=== PATIENT | female | born 1975 | race Caucasian/White ===

== ENCOUNTER → 2022-06-09 | Outpatient (CLI) | payer OTHER | LOC: COL.CARD 09:04 | DX: G93.2 Benign intracranial hypertension (principal); R25.1 Tremor, unspecified; R42 Dizziness and giddiness ==

== ENCOUNTER 2022-07-26 08:43 | Day surgery (SDC) | payer OTHER ==
[~2022-07-26] VITALS: Ht 162.6 cm; Wt 113.5 kg
[2022-07-26 10:43] VITALS: BP 102/70; PULSE 90; TEMP 97.9
[2022-07-26] MEDS ORDERED: K-DUR 10 MEQ T10 MEQ PO (10:48)
[2022-07-26] MEDS ORDERED: COZAAR100 MG PO (10:48)
[2022-07-26] MEDS ORDERED: VITAMIN D3 PO (10:49)
[2022-07-26] MEDS ORDERED: HCTZ12.5TAB PO (10:49)
[2022-07-26] MEDS ORDERED: RT ADVAIR 528 DISKUS IH (10:50)
[2022-07-26] MEDS ORDERED: COMBIVENT RESPIMAT (10:50)
[2022-07-26] MEDS ORDERED: ZYRTEC 10MG10 MG PO (10:51)
[2022-07-26] MEDS ORDERED: TOPROL XL 50MG50 MG PO (10:51)
[2022-07-26] MEDS ORDERED: VITAMIN B650 MG PO (10:52)
[2022-07-26] MEDS ORDERED: UNISOM (10:52)
[2022-07-26] MEDS ORDERED: PROTONIX 40MG T40 MG PO (10:53)
[2022-07-26] MEDS ORDERED: DIAMOX SEQUELS500 M1 PO (10:55)
[2022-07-26] MEDS ORDERED: ZOFRAN 4MG T4 MG/TAB PO (10:56)
[2022-07-26] MEDS ORDERED: SINGULAIR 110 MG/TAB PO (10:58)
[2022-07-26] MEDS ORDERED: MIRAPEX0.5 MG PO (10:59)
[2022-07-26] MEDS ORDERED: FIORICET 325 MG1 TA1 PO (11:00)
[2022-07-26] MEDS ORDERED: MAXALT10 MG (11:00)
[2022-07-26] MEDS ORDERED: ZANAFLEX 4MG TAB4 MG PO (11:01)
[2022-07-26] MEDS ORDERED: NORCO 325 MG-101 TAB PO (11:01)
[2022-07-26] MEDS ORDERED: NASACORT OTC NS (11:01)
[2022-07-26] MEDS ORDERED: FLOMAX 0.40.4 MG/CAP PO (11:02)
[2022-07-26] MEDS ORDERED: TUMS500 MG (11:02)
[2022-07-26] MEDS ORDERED: NEURONTIN800 MG/TAB PO (11:02)
[2022-07-26] MEDS ORDERED: ASPIRIN E.C. 8181 MG PO (11:03)
[2022-07-26] MEDS ORDERED: CARAFATE 1GM1 G PO (11:18)
[2022-07-26 11:30] VITALS: BP 110/54; PULSE 81; TEMP 97.2
[2022-07-26 11:45] VITALS: BP 107/56; PULSE 87
--- NOTE | 2022-07-26 12:07 | NUR ---
1130-PATIENT RETURNED FROM [place]ED[facility] VIA CART [place] [facility] [facility], AMBULATED WITH SBA TO RECLINER. REPORT OBTAINED FROM FERCHO MUNSON. VITAL SIGNS TAKEN, VSS. PATIENT GIVEN FLUIDS AND SNACK, TOLERATING PO INTAKE WELL. DENIES PAIN/NAUSEA. 1135-DR. SMITH AT BEDSIDE FOR UPDATE, QUESTIONS INVITED. 1200-IV CATHETER REMOVED, CATHETER TIP INTACT. PRESSURE HELD AND BANDAGE APPLIED. DISCHARGE INSTRUCTIONS REVIEWED WITH PT. PT DRESSED INDEPENDENTLY. 1213-PATIENT DISCHARGED HOME TO [facility], ACCOMPANIED BY FRIEND. PATIENT REQUEST D/C VIA AMBULATION, AMBULATING INDEPENDENTLY.
[2022-07-31] VITALS (7 sets, daily range): O2SAT 99
[2022-08-02] VITALS (7 sets, daily range): O2SAT 86–98
== END 2022-07-26 12:13 | disposition home or self-care (01) ==
LOC: SDCO 08:43
DX: K29.30 Chronic superficial gastritis without bleeding (principal); K25.4 Chronic or unspecified gastric ulcer with hemorrhage; D12.2 Benign neoplasm of ascending colon; K31.84 Gastroparesis; D12.3 Benign neoplasm of transverse colon; R19.7 Diarrhea, unspecified; K64.0 First degree hemorrhoids; F17.210 Nicotine dependence, cigarettes, uncomplicated
CPT/HCPCS: J2704; J3010; J7120

== ENCOUNTER 2022-07-29 14:08 | Inpatient (IN) | payer OTHER ==
[~2022-07-29] VITALS: Ht 193 cm; Wt 121.8 kg
[~2022-07-29 14:08] MED LIST: ASPIRIN E.C. 8181 MG PO; CARAFATE 1GM1 G PO; COMBIVENT RESPIMAT; COZAAR100 MG PO; DIAMOX SEQUELS500 M1 PO; FIORICET 325 MG1 TA1 PO; FLOMAX 0.40.4 MG/CAP PO; HCTZ12.5TAB PO; K-DUR 10 MEQ T10 MEQ PO; MAXALT10 MG; MIRAPEX0.5 MG PO; NASACORT OTC NS; NEURONTIN800 MG/TAB PO; NORCO 325 MG-101 TAB PO; PROTONIX 40MG T40 MG PO; RT ADVAIR 528 DISKUS IH; SINGULAIR 110 MG/TAB PO; TOPROL XL 50MG50 MG PO; TUMS500 MG; UNISOM; VITAMIN B650 MG PO; VITAMIN D3 PO; ZANAFLEX 4MG TAB4 MG PO; ZOFRAN 4MG T4 MG/TAB PO; ZYRTEC 10MG10 MG PO
--- NOTE | 2022-07-29 17:57 | NUR ---
Patient arrived to the unit via EMS, alert and oriented x 4, in need of 6 L O2 NC. SOB while speaking, O2 drops with movement to 87-88%.
[2022-07-29 18:00] VITALS: BP_SYST 120
[2022-07-29] MEDS ORDERED: ALBUTEROL0.83 MG/ML IH (18:00)
[2022-07-29] MEDS ORDERED: RT ALBUTER2.5 MG/0.5 IH (18:02)
[2022-07-29] MEDS ORDERED: PROAIR HFA0.09 MG/AC IH (18:08)
[2022-07-29] MEDS ORDERED: PHENERGAN 25 TA25 MG PO (18:11)
[2022-07-29] MEDS ORDERED: SINGULAIR 110 MG/TAB PO (18:12)
[2022-07-29] MEDS ORDERED: FIORICET 325 MG1 TA1 PO (18:14)
[2022-07-29] MEDS ORDERED: ASTELIN NASAL S34 ML NS (18:18)
[2022-07-29] MEDS ORDERED: LASIX 40MG TABL40 MG PO (18:21)
[2022-07-29] MEDS ORDERED: TURMERIC500 MG PO (18:22)
[2022-07-29] MEDS ORDERED: LIDODERM 5% PATC1 EA TP (18:25)
[2022-07-29 19:26] VITALS: BP 102/58; PULSE 104; TEMP 99.1
[2022-07-29 19:30] LABS: ARTERIAL BLD GAS O2 SATURATION 95.8 % (92-100); ARTERIAL BLD GAS TCO2 CT 22.1; ARTERIAL BLOOD GAS BASE EXCESS -2.8 (-2-2); ARTERIAL BLOOD GAS HCO3 21.1 meq/L (22-26); ARTERIAL BLOOD GAS PCO2 33.6 mmHg (35-45); ARTERIAL BLOOD GAS PO2 78.8 mmHg (80-100); ARTERIAL BLOOD GAS pH 7.42 (7.35-7.45)
[2022-07-29 21:00] VITALS: BP_SYST 102
[2022-07-29 23:56] VITALS: BP 101/40; PULSE 102; TEMP 98.2
[2022-07-30] VITALS (13 sets, daily range): BP systolic 91–125; BP diastolic 51–72; PULSE 60–97; TEMP 97.8–99.1
--- NOTE | 2022-07-30 | NUR ---
Assessment completed at 2015. A&Ox4. Pt currently experiencing dyspnea on rest, and having difficulty speaking due to SOA. RAC INT is CDI. On O2 at 6L per NC. Gait is very unsteady, so bedside commode is next to the bed to facilitate safe transfer of the pt. Pt refusing to use bedpan. Pt was also requesting to have the regular pain meds and anxiety meds that she usually takes at home. Provider was notified. Provider placed verbal orders to perform RVP test, and place pt on Droplet precautions.
--- NOTE | 2022-07-30 06:32 | NUR ---
Pt was reporting chest pain around 0445. MEE Fox was notified. EKG and pain medication were ordered at this time. BP was 117/60 around 0600, and per MEE Fox IV lasix is good to be administered if SBP is above 110. Pain was scored at 6/10. Pt remains on O2 at 6L per Oxymask.
[2022-07-30 06:39] LABS: HEMOGLOBIN 12.2 g/dl (12.5-16.0); MEAN CELL VOLUME 98 fl (80.0-100.0); MEAN CORPUSCULAR HEMOGLOBIN 34 pg (27-31); MEAN CORPUSCULAR HGB CONC 35 g/dl (33.0-37.0); MEAN PLATELET VOLUME 11.2 fl (7.4-10.4); PLATELET COUNT 249 K/mm3 (130-400); RED BLOOD COUNT 3.58 M/mm3 (4.10-5.30); REDCELL DISTRIBUTION WIDTH-CV 13.2 % (11.5-14.5)
[2022-07-30 06:43] LABS: HEMATOCRIT 35.2 % (37.0-47.0)
[2022-07-30 07:03] LABS: ANION GAP 11 mmol/L (7-16); BLOOD UREA NITROGEN 26 mg/dL (7-19); CALCIUM 9.7 mg/dL (8.4-10.2); CARBON DIOXIDE 23 mmol/L (22-29); CHLORIDE 106 mmol/L (98-107); CREATININE, serum 1.25 mg/dL (0.57-1.11); GLUCOSE 149 mg/dL (70-99); MAGNESIUM 2.3 mg/dL (1.6-2.6); POTASSIUM 3.5 mmol/L (3.5-4.5); SODIUM 140 mmol/L (136-145)
[2022-07-30 07:10] LABS: TROPONIN-I < 0.010 ng/mL (0.00-0.033)
[2022-07-30 07:30] LABS: BAND 13 % (0-10); LYMPHOCYTE 7 % (20.0-51.0); NEUTROPHILS 80 % (42.0-75.2); PLATELET ESTIMATE NORMAL (NORMAL)
--- NOTE | 2022-07-30 15:07 | NUR ---
PATIENT ALERT AND ORIENTED X3. PATIENT WORKED WITH THERAPY TODAY. USING BED SIDE COMMODE. NEW IV TO RIGHT HAND. PRN NORCO GIVEN FOR PAIN. ON CLEAR LIQUID DIET.
[2022-07-30 16:19] LABS: ARTERIAL BLD GAS TCO2 CT 29.1; ARTERIAL BLOOD GAS BASE EXCESS 3.2 (-2-2); ARTERIAL BLOOD GAS HCO3 27.8 meq/L (22-26); ARTERIAL BLOOD GAS PCO2 42.2 mmHg (35-45); ARTERIAL BLOOD GAS pH 7.44 (7.35-7.45)
--- NOTE | 2022-07-30 16:24 | NUR ---
PATIENT COMPLAINING OF HEAVINESS IN CHEST AND HAVING TROUBLE BREATHING. O2 WAS 94%. DR GOULD NOTIFIED. EKG AND ABG ORDERED. TROPONIN LEVEL DRAWN. MORPHINE GIVEN FOR PAIN.
[2022-07-31] VITALS (645 sets, daily range): BP systolic 97–131; BP diastolic 49–83; PULSE 64–90; TEMP 97.7–98.4; O2SAT 87–100
--- NOTE | 2022-07-31 05:13 | NUR ---
Assessment completed around 2029. Medications administered per emar. Pt is expressing feeling very upset because she expressed she had a very hard day because of the pain management that was not under control. She requested this CURB SETTER HELPER something to eat, stating that nobody assisted her earlier to order her dinner. O2 on Airvo at 30L. R Hand INT is CDI. Pt requesting pain meds at this time. Belongings and call light are within reach.
--- NOTE | 2022-07-31 05:43 | NUR ---
Pt requested her pain meds during the night. Couldn't sleep very good and stated that headache didn't decrease that much. Transferred to bedside commode with dark yellow urine output.
[2022-07-31 07:31] LABS: HEMOGLOBIN 11.9 g/dl (12.5-16.0); MEAN CELL VOLUME 97 fl (80.0-100.0); MEAN CORPUSCULAR HEMOGLOBIN 34 pg (27-31); MEAN CORPUSCULAR HGB CONC 35 g/dl (33.0-37.0); PLATELET COUNT 271 K/mm3 (130-400); RED BLOOD COUNT 3.52 M/mm3 (4.10-5.30); REDCELL DISTRIBUTION WIDTH-CV 13.1 % (11.5-14.5)
[2022-07-31 07:36] LABS: HEMATOCRIT 34.3 % (37.0-47.0)
[2022-07-31 07:51] LABS: ALBUMIN 2.7 gm/dL (3.5-5.0); CALCIUM 9.3 mg/dL (8.4-10.2); CREATININE, serum 1.29 mg/dL (0.57-1.11); PHOSPHOROUS 3.1 mg/dL (2.3-4.7); POTASSIUM 3.3 mmol/L (3.5-4.5)
--- NOTE | 2022-07-31 08:00 | NUR ---
Assessment completed. Pt A/O x4. AirVo at 30L. Pt reports SOA at rest but able to speak in full sentences. Reports chronic migraines and generalized pain from injury she sustained while in the . Requesting Maxalt not Fioricit since Maxalt works better for the type of headache she is currently experiencing. Also requesting MSO4. Maxalt not ordered. Will contact physician for order. Reports no bowel movement since had EGD/Colon on Monday but has only been on clear liquids- denies passing flatus. Denies nausea or vomitting. Reports chest pain is chronic and has not changed since yesterday.
[2022-07-31 09:05] LABS: BAND 2 % (0-10); LYMPHOCYTE 4 % (20.0-51.0); NEUTROPHILS 93 % (42.0-75.2)
[2022-07-31 09:06] LABS: PLATELET ESTIMATE NORMAL (NORMAL)
[2022-07-31 11:47] LABS: ARTERIAL BLD GAS O2 SATURATION 95.7 % (92-100); ARTERIAL BLD GAS TCO2 CT 28.3; ARTERIAL BLOOD GAS BASE EXCESS 3.1 (-2-2); ARTERIAL BLOOD GAS HCO3 27.1 meq/L (22-26); ARTERIAL BLOOD GAS PCO2 39.2 mmHg (35-45); ARTERIAL BLOOD GAS PO2 81.7 mmHg (80-100); ARTERIAL BLOOD GAS pH 7.46 (7.35-7.45)
--- NOTE | 2022-07-31 12:39 | NUR ---
Imitrex adminsited for c/o headache at 1107. MSO4 adminsitered for c/o headache at 1230- rating 8/10 and chest pain 7/10. Report called to FERCHO Dillard in ICU.
--- NOTE | 2022-07-31 13:10 | NUR ---
Pt transferred to the ICU bed #5.
--- NOTE | 2022-07-31 13:25 | NUR ---
Arrived to the unit from the medical floor. Patient alert and oriented. No respiratory distress noted at rest, however exertional dyspnea was noted after moving herself from medical bed to icu bed. 02 saturations 99% on 30L at 35% on airvo. Patient denies any concerns at this time and appears more comfortable after settling into the ICU bed. Call light left within reach; will continue to monitor.
--- NOTE | 2022-07-31 16:40 | NUR ---
Patient's heart rate noted to be sinus dysrhythmia ranging from the 40's-80's. BP stable and patient alert and oriented per her baseline. 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 States that her heart beat will fluctuate and get "fast and slow". She reports some midsternal sharp chest pain with some tightness. This chest pain was present on admission and started several days ago. The pain is worse when she coughs. EKG obtained and Dr. Tate notified and EKG was reviewed. No new orders at this time.
--- NOTE | 2022-07-31 20:00 | NUR ---
SHIFT REPORT RECEIVED. PT IS A&O x4. PT REPORTS FEELING LIKE SHE IS HAVING INCREASED WORK OF BREATHING AND IS STARTING TO FEEL "TIRED". PT LUNG SOUNDS COARSE AND PT ON AIRVO AT THIS TIME. PT REPORTS MILD DULL AGUILAR AND REQUESTING HER EVENING MEDS AT THIS TIME. CALL LIGHT AT BEDSIDE.
[2022-07-31 22:26] LABS: COLLECTION METHOD CLEAN CATCH
[2022-07-31 22:31] LABS: URINE APPEARANCE Clear (CLEAR/HAZY); URINE COLOR Yellow (YELLOW)
[2022-07-31 22:32] LABS: PH 5.5 (5.0-8.5); SQUAMOUS EPITHELIAL 0-2 /hpf (0-10); URINE BACTERIA None Seen /hpf (NONE SEEN); URINE BLOOD Negative (NEGATIVE); URINE GLUCOSE Negative (NEGATIVE); URINE KETONE Negative (NEGATIVE); URINE NITRATE Negative (NEGATIVE); URINE PROTEIN(semi-quant) TRACE (NEGATIVE); URINE RBC 0-2 /hpf (0-2); URINE UROBILINOGEN 0.2 E.U/dL (0.2-1.0)
[2022-08-01] VITALS (1215 sets, daily range): BP systolic 110–143; BP diastolic 61–83; PULSE 47–56; TEMP 97.2–98.2; O2SAT 84–100
[2022-08-01 03:54] LABS: HEMOGLOBIN 11.9 g/dl (12.5-16.0); MEAN CELL VOLUME 97 fl (80.0-100.0); MEAN CORPUSCULAR HEMOGLOBIN 34 pg (27-31); MEAN CORPUSCULAR HGB CONC 35 g/dl (33.0-37.0); MEAN PLATELET VOLUME 10.4 fl (7.4-10.4); PLATELET COUNT 251 K/mm3 (130-400); RED BLOOD COUNT 3.47 M/mm3 (4.10-5.30); REDCELL DISTRIBUTION WIDTH-CV 12.7 % (11.5-14.5)
[2022-08-01 03:59] LABS: HEMATOCRIT 33.7 % (37.0-47.0)
[2022-08-01 04:18] LABS: ALBUMIN 2.7 gm/dL (3.5-5.0); C-REACTIVE PROTEIN 4.51 mg/dL (0.00-0.50); CALCIUM 9.4 mg/dL (8.4-10.2); CREATININE, serum 1.1 mg/dL (0.57-1.11); PHOSPHOROUS 2.8 mg/dL (2.3-4.7); POTASSIUM 3.9 mmol/L (3.5-4.5)
[2022-08-01 04:37] LABS: LYMPHOCYTE 12 % (20.0-51.0); NEUTROPHILS 86 % (42.0-75.2); PLATELET ESTIMATE NORMAL (NORMAL)
--- NOTE | 2022-08-01 06:52 | NUR ---
PT WAS ABLE TO REST MOST OF THE NIGHT. HAD C/O "HEART HURTS, FEELS SORE" APPROX @0330. PT GIVEN MORPHINE PER JUN, SEEN BY HOSPITALIST, AND PLACED ON BIPAP. PT REPORTS FEELING RELIEF IN SXS SINCE THEN.
--- NOTE | 2022-08-01 07:00 | NUR ---
BEDSIDE REPORT RECEIVED FROM FERCHO DUNCAN. PT CURRENTLY ON BIPAP AND RESTING IN BED. ANSWERS YES AND NO QUESTIONS APPROPRIATELY. OFFERS NO COMPLAINTS. APPEARS TO BE RESTING COMFORTABLY.
[2022-08-01 08:49] LABS: ARTERIAL BLD GAS O2 SATURATION 97.9 % (92-100); ARTERIAL BLD GAS TCO2 CT 26.7; ARTERIAL BLOOD GAS BASE EXCESS 1.9 (-2-2); ARTERIAL BLOOD GAS HCO3 25.6 meq/L (22-26); ARTERIAL BLOOD GAS PCO2 36.7 mmHg (35-45); ARTERIAL BLOOD GAS PO2 110.7 mmHg (80-100); ARTERIAL BLOOD GAS pH 7.46 (7.35-7.45)
--- NOTE | 2022-08-01 11:34 | NUR ---
Technical Service Representative met with Patient at bedside to conduct Care Managment Assessment and discuss discharge planning. Patient lives in [place], [place] with her nanny and children. Patient reports that her is stationed in [place] and is returning due to her admission. Patient is established with all healthcare needs through [facility] and is covred with community care through [facility]. Thang denies the use of O2, DME, and home health services prior to admission. Patient reports to have advanced directives at home. SW briefed that a copy of the AD would be needed should Patient become unresponsive for a family member to be able to make decisions on her bahalf as Patient's is deployed and could potentially not be able to be contacted. Per physician, Patient is to transfer to medical unit on this day.
--- NOTE | 2022-08-01 14:35 | NUR ---
PHYSICAL THERAPY HERE TO WORK WITH PT. PT STATES SHE DOES NOT WANT TO GET OUT OF BED DUE TO MIGRAINE. THIS NURSE EDUCATED PT ON IMPORTANCE OF MOVEMENT AND DEEP BREATHING TO HELP WITH PNA. PT VERBALIZED UNDERSTANDING BUT DECLINED TO GET OUT OF BED/WORK WITH PHYSICAL THERAPY.
--- NOTE | 2022-08-01 19:19 | NUR ---
[place] CATHETER REMOVED. PT EXPRESSES SHE IS NOT HAPPY ABOUT NO LONGER HAVING A KINGSTON. STATES "I DONT KNOW HOW YOU THINK I'M GOING TO GO PEE, BECAUSE I'M NOT GOING TO GET OUT OF BED." PT ASKS WHO'S DECISION IT WAS TO REMOVE KINGSTON. PT INFORMED THAT IT WAS ORDED BY DR. HOLLOWAY TO BE REMOVED. PT ALSO EDUCATED ON IMPORTANCE OF REMOVING KINGSTON SOON NO LONGER INDICATED DUE TO HIGH RISK OF INFECTION. UNSURE IF PT UNDERSTANDS; IGNORES THIS NURSE WHEN SPOKEN TO.
--- NOTE | 2022-08-01 19:52 | NUR ---
Received report from day shift nurse. Pt is resting in bed and has call light wiQooplin reach. Pt's vitals are stable at this time.
--- NOTE | 2022-08-01 20:59 | NUR ---
Indwelling bell was removed during shift change. Ask if pt needs to go to the restroom at this time. Pt refuses and states she has "Nothing to pee." Will continue to ask throughout the night.
--- NOTE | 2022-08-01 21:11 | NUR ---
2030 Pt denies to being repositioned at this time. Nurse asked pt if she would like an ice pack for her headache and pt refused. Pt wanted morphine but it has been D/C, educated pt on not wanting to lower her respiratory drive and want her to breath deeply to help move her lungs more. Gave her narco and tylenol per EMAR.
[2022-08-02] VITALS (281 sets, daily range): BP systolic 139–142; BP diastolic 80–94; PULSE 46–71; TEMP 97.8–98.6; O2SAT 87–100
[2022-08-02 04:47] LABS: HEMATOCRIT 37.7 % (37.0-47.0); HEMOGLOBIN 12.9 g/dl (12.5-16.0); MEAN CELL VOLUME 99 fl (80.0-100.0); MEAN CORPUSCULAR HEMOGLOBIN 34 pg (27-31); MEAN CORPUSCULAR HGB CONC 34 g/dl (33.0-37.0); MEAN PLATELET VOLUME 10.6 fl (7.4-10.4); PLATELET COUNT 265 K/mm3 (130-400); RED BLOOD COUNT 3.81 M/mm3 (4.10-5.30); REDCELL DISTRIBUTION WIDTH-CV 12.5 % (11.5-14.5)
[2022-08-02 05:05] LABS: BAND 2 % (0-10); LYMPHOCYTE 14 % (20.0-51.0); METAMYELOCYTE 3 % (0-0); NEUTROPHILS 80 % (42.0-75.2); NUCLEATED RED BLOOD CELL 1 (0-6); PLATELET ESTIMATE NORMAL (NORMAL)
[2022-08-02 05:16] LABS: ALBUMIN 2.9 gm/dL (3.5-5.0); CREATININE, serum 1.11 mg/dL (0.57-1.11); PHOSPHOROUS 2.4 mg/dL (2.3-4.7); POTASSIUM 4.1 mmol/L (3.5-4.5)
--- NOTE | 2022-08-02 11:29 | NUR ---
Quality Head met with Patient at bedside to support Patient's concerns for care. Quality Head provided support and encouragment to Patient.
--- NOTE | 2022-08-02 14:20 | NUR ---
Pt had an uneventful night. Pt's vitals were stable throughout the night. Pt had bell removed at the beginning and stated she did not need to urinate. Around 0430 nurse asked if pt would try and get up to the bedside commode and see if that would help the urge. Pt pivoted from bed to commode and was able to do with nurse at standby assist. Pt was able to get 500 mL out. Pt complained of pain q4hr and pain meds were administered when able per EMAR. Pt is alert and oriented and able to follow commands. Gave report to day shift nurseMarie.
--- NOTE | 2022-08-02 15:10 | NUR ---
PT TRANSFERED TO MEDICAL FLOOR VIA WHEELCHAIR. REPORT GIVEN TO FERCHO SURESH AND JEREMIAS.
--- NOTE | 2022-08-02 15:36 | NUR ---
PT ADMITTED TO UNIT AROUND 1510 TODAY. GAME FARM HELPER WAS ASSISTING GEN SURESH RN WITH PT TRANSFER FROM ICU TO UNIT; MANAGER CALL WAS IN THE ROOM DOING VITALS- SHE NOTIFIED GAME FARM HELPER THAT PT HR WAS IN THE 40'S- GAME FARM HELPER SAID "OKAY, ICU SAID SHE HAD BEEN RUNNING IN THE 40'S". AND DEMETRICE DID PT MED REQ AND GAME FARM HELPER THEN TOLD DEMETRICE TO DO PT ASSESSMENT; LISTEN TO LUNGS, ETC. PT SAYS " MAY I SAY SOMETHING, MAYBE IT WAS YOUR TONE OF VOICE. I JUST WANT YOU TO KNOW EVERYTHING GOING ON WITH ME AND NOT IGNORE THINGS. YOU SAID IT WAS OKAY THAT MY HEART RATE WAS IN THE 40'S". GAME FARM HELPER SAID "I DID NOT SAY THAT IT WAS OKAY IT WAS IN THE 40'S". PT STATED "YES YOU DID". GAME FARM HELPER STATED " SERGIO TOLD ME THAT YOUR HEART RATE WAS IN THE 40'S AND I RESPONDED OKAY, ICU SAID SHE HAD BEEN RUNNING IN THAT RANGE. THAT IS VERY DIFFERENT THAN SAYING IT WAS OKAY FOR IT TO BE IN THE 40'S. I WOULD APPRECIATE IF YOU DID NOT PUT WORDS IN MY MOUTH I HADN'T SAID". PT THEN STATED THAT SHE HAD A LOW HR BECAUSE SHE HAS CHF. GAME FARM HELPER TOLD HER THAT GAME FARM HELPER WAS AWARE SHE HAD CHF, THAT GAME FARM HELPER HAD LOOKED OVER HER CHART AND IS AWARE OF EVERYTHING GOING ON. PT STATES THAT SHE WANTED TO MAKE SURE THAT WE KNOW EVERYTHING HAPPENING AND DON'T ONLY FOCUS ON HER LUNGS. GAME FARM HELPER TOLD HER THAT WE WILL CHECK EVERYTHING DURING ASSESSMENT. PT APPEARS TO ONLY HEAR BITS AND PIECES OF WHAT SHE WANTS TO THEN BE ARGUEMENTATIVE ABOUT THINGS. VERY DEFENSIVE AND MANIPULATIVE BEHAVIORS. WILL CONTINUE TO MONITOR PT UNTIL END OF SHIFT
--- NOTE | 2022-08-02 15:39 | NUR ---
Patient arrived in room from ICU. Alert and oriented x4. Patient complains pain rating 8/10. When asked for specific location or type of pain, patient says just the general pain. Bed in low position, bed alarm is on. Will continue to monitor.
[2022-08-03 00:38] VITALS: BP 150/78; PULSE 46; TEMP 98.2
[2022-08-03 03:45] VITALS: BP 141/79; PULSE 61; TEMP 98.4
[2022-08-03 06:57] LABS: HEMOGLOBIN 11.8 g/dl (12.5-16.0); MEAN CELL VOLUME 99 fl (80.0-100.0); MEAN CORPUSCULAR HEMOGLOBIN 34 pg (27-31); MEAN CORPUSCULAR HGB CONC 34 g/dl (33.0-37.0); MEAN PLATELET VOLUME 10.8 fl (7.4-10.4); PLATELET COUNT 241 K/mm3 (130-400); RED BLOOD COUNT 3.52 M/mm3 (4.10-5.30); REDCELL DISTRIBUTION WIDTH-CV 12.6 % (11.5-14.5)
[2022-08-03 07:01] LABS: HEMATOCRIT 34.7 % (37.0-47.0)
[2022-08-03 07:26] VITALS: BP 144/82; PULSE 68; TEMP 98.4
[2022-08-03 07:28] LABS: ALBUMIN 2.7 gm/dL (3.5-5.0); CALCIUM 9.3 mg/dL (8.4-10.2); CREATININE, serum 1.11 mg/dL (0.57-1.11); PHOSPHOROUS 2.5 mg/dL (2.3-4.7)
--- NOTE | 2022-08-03 07:40 | NUR ---
Pt lying in dark room w/ HOB elevated at approx 40 degrees. A&Ox4. Shift assessment performed. Respirations are even and unlabored on room air. Pt denies SOA, dyspnea, or chest pain. No cyanosis to lips or extremities. Pt does report headache and requesting PRN APAP. Pain is 4/10 throbbing. PRN APAP admin. No other complaints or concerns.
[2022-08-03] MEDS ORDERED: CLEOCIN HCL300 MG PO (11:09)
[2022-08-03] MEDS ORDERED: PREDNISONE20 MG PO (11:09)
--- NOTE | 2022-08-03 11:29 | NUR ---
SW notified that Exox completed and the patient does not have any home oxygen needs for discharge.Patient to discharge home later today. Discharge plan: Home
--- NOTE | 2022-08-03 11:55 | NUR ---
Central line removed from LF chest. Sterile process. Tip intact. Gauze and coban applied. Patient tolerated well. 15 minutes pressure held. Call light within reach
--- NOTE | 2022-08-03 12:40 | NUR ---
Pt is preparing for discharge. PIV removed from LFA w/ cath intact. Pressure drsg applied. Discharge education and instructions given to pt. Pt verbalizes understanding. No questions or concerns. Pt then escorted to POV via w/c by this nurse.
[2022-08-03 14:22] LABS: LYMPHOCYTE 9 % (20.0-51.0); NEUTROPHILS 86 % (42.0-75.2)
[2022-08-03 14:23] LABS: PLATELET ESTIMATE NORMAL (NORMAL)
== END 2022-08-03 12:40 | disposition home or self-care (01) | DRG 871 ==
LOC: MEDICAL 14:08 → ICU 16:11 → MEDICAL 08-02 15:15
PROVIDERS: Internal Medicine; Internal Medicine Pulmonary Disease; ADMIT Student in an Organized Health Care Education/Training Program
PROC: 02HV33Z Insertion of Infusion Device into Superior Vena Cava, Percutaneous Approach (ICD-10-PCS; principal; 2022-07-31)
PROC: 5A09457 Assistance with Respiratory Ventilation, 24-96 Consecutive Hours, Continuous Positive Airway Pressure (ICD-10-PCS; 2022-08-01)
DX: A41.9 Sepsis, unspecified organism (principal); J18.9 Pneumonia, unspecified organism; J96.01 Acute respiratory failure with hypoxia; I50.32 Chronic diastolic (congestive) heart failure; I13.0 Hypertensive heart and chronic kidney disease with heart failure and stage 1 through stage 4 chronic kidney disease, or unspecified chronic kidney disease; E87.20 Acidosis, unspecified; H54.62 Unqualified visual loss, left eye, normal vision right eye; I48.0 Paroxysmal atrial fibrillation; E66.01 Morbid (severe) obesity due to excess calories; K31.84 Gastroparesis; G89.29 Other chronic pain; F17.210 Nicotine dependence, cigarettes, uncomplicated; K44.9 Diaphragmatic hernia without obstruction or gangrene; N18.30 Chronic kidney disease, stage 3 unspecified; K76.0 Fatty (change of) liver, not elsewhere classified; E87.6 Hypokalemia; E83.42 Hypomagnesemia; Z87.442 Personal history of urinary calculi; Z90.710 Acquired absence of both cervix and uterus; Z90.49 Acquired absence of other specified parts of digestive tract; Z79.82 Long term (current) use of aspirin; Z79.899 Other long term (current) drug therapy; Z98.2 Presence of cerebrospinal fluid drainage device; Z23 Encounter for immunization; Z68.32 Body mass index [BMI] 32.0-32.9, adult
CPT/HCPCS: A4314; J0696; J1644; J1940; J2270; J2543; J2920; J3475; J3480

== ENCOUNTER 2023-01-12 11:59 | Outpatient (CLI) | payer OTHER ==
[~2023-01-12] VITALS: Ht 162.6 cm; Wt 116.5 kg
[~2023-01-12 11:59] MED LIST changes: +ALBUTEROL0.83 MG/ML IH; +ASTELIN NASAL S34 ML NS; +CEFTIN500 MG PO; +CLEOCIN HCL300 MG PO; +COMBIRESP IH; -COMBIVENT RESPIMAT; +DESYREL 50MG50 MG PO; +EMGALITY120 MG/1 M SQ; -K-DUR 10 MEQ T10 MEQ PO; +LASIX 40MG TABL40 MG PO; +LIDODERM 5% PATC1 EA TP; +MAXALT MLT10 MG/TAB PO; -MAXALT10 MG; +PHENERGAN 25 TA25 MG PO; +PREDNISONE10 MG PO; +PREDNISONE20 MG PO; +PROAIR HFA0.09 MG/AC IH; +RT ALBUTER2.5 MG/0.5 IH; +TURMERIC500 MG PO; -UNISOM; +UNISOM25 MG PO; +UROCIT-K 1010 MEQ PO; -VITAMIN D3 PO; +VITAMIN D31000 I1 PO; -ZYRTEC 10MG10 MG PO; +ZYRTEC5 MG PO
[2023-01-12 12:22] VITALS: BP 99/75; PULSE 89; TEMP 98.2
[2023-01-12] MEDS ORDERED: VITAMIN B-625 MG PO (13:29)
[2023-01-12 14:40] VITALS: BP 130/86; PULSE 94
[2023-01-12 15:00] VITALS: BP 129/91; PULSE 96
--- NOTE | 2023-01-12 15:45 | NUR ---
Pt ambulated to EU9 accompanied by . Pt is scheduled for a tilt table test. IV started, EKG done. Meds and HX reviewed with the pt. Pt taken to laborer wharf. Came back to EU9 post procedure. Pt did not have any episodes of passing out during the recovery. Pt recovered in EU9 for about 30 minutes, per pt was okay to DC after 30 minutes. Discharge education and information given to the pt. No questions or concerns. Pt exited the unit by wheelchair to husbands car.
== END 2023-01-12 15:23 | disposition home or self-care (01) ==
LOC: COL.CAR 11:59
DX: R55 Syncope and collapse (principal); I48.0 Paroxysmal atrial fibrillation; R06.02 Shortness of breath; I50.30 Unspecified diastolic (congestive) heart failure; I13.0 Hypertensive heart and chronic kidney disease with heart failure and stage 1 through stage 4 chronic kidney disease, or unspecified chronic kidney disease; F17.210 Nicotine dependence, cigarettes, uncomplicated; Z79.82 Long term (current) use of aspirin; Z79.899 Other long term (current) drug therapy; Z79.891 Long term (current) use of opiate analgesic

== ENCOUNTER → 2023-04-19 | Outpatient (CLI) | payer OTHER ==
[~2023-04-19] MED LIST changes: +ADVIL200 MG PO; +DOXYCYCLINE HY100 MG PO; +EXCEDRIN1 TAB PO; +HYZAAR 50-12.1 UDTAB PO; +NASONEX 24HR AL17 ML NS; +VITAMIN B-625 MG PO; +ZYRTEC 10MG10 MG PO
== END ==
LOC: MHCPAIN 09:56
DX: M48.061 Spinal stenosis, lumbar region without neurogenic claudication (principal); M47.816 Spondylosis without myelopathy or radiculopathy, lumbar region
CPT/HCPCS: G0463

== ENCOUNTER 2023-04-29 21:42 | Inpatient (IN) | payer OTHER ==
[~2023-04-29] VITALS: Ht 162.6 cm; Wt 117.5 kg
[2023-04-29] MEDS ORDERED: Albuterol/Ipratropium 3 MG-0.5 MG/3 ML Neb Soln IH PRN ×2 (22:15)
--- NOTE | 2023-04-29 23:05 | NUR ---
PT ARRIVED FROM [facility] [place] VIA EMS. PT IS AXOX3. PT IS ON 2L NC SATING LOW 90'S. PT IS SOB WITH ACTIVITY. PT IS ONLY ABLE TO SPEAK ONE SENTENCE AT A TIME WITHOUT STOPPING DUE TO BEING WINDED. OTHER VSS. PT ORIENTED TO ROOM AND FLOOR. PT GIVEN CALL LIGHT AND INSTRUCTED TO CALL WITH ALL NEEDS. JAVIER SCHAEFER IN ROOM TO ASSESS PT. LAB CALLED FOR NEW ORDERS. ASSESSMENT AND ADMISSION COMPLETED.
[2023-04-29] MEDS ORDERED: Promethazine 25 MG TAB PO PRN (23:15)
[2023-04-29] MEDS ORDERED: traZODone 50 MG TAB PO SCH (23:16)
[2023-04-29] MEDS ORDERED: Montelukast 10 MG TAB PO SCH (23:17)
[2023-04-29] MEDS ORDERED: Lidocaine 4% Topical Patch TP SCH (23:30)
[2023-04-29 23:37] VITALS: BP 112/69; PULSE 97; TEMP 98.1
[2023-04-30] VITALS (13 sets, daily range): BP systolic 89–125; BP diastolic 50–80; PULSE 91–108; TEMP 97.5–98.7
[2023-04-30] MEDS ORDERED: Gabapentin 400 MG CAP PO SCH (00:07)
[2023-04-30] MEDS ORDERED: Sucralfate 1 G TAB PO SCH (00:08)
[2023-04-30] MEDS ORDERED: HYDROcodone/Acetaminophen 10-325 MG TAB PO SCH (00:08)
[2023-04-30 00:53] LABS: CALCIUM 9.9 mg/dL (8.4-10.2); CREATININE, serum 1.26 mg/dL (0.57-1.11)
[2023-04-30 00:58] LABS: POTASSIUM 2.9 mmol/L (3.5-4.5)
[2023-04-30] MEDS ORDERED: Potassium Bicarbonate/Citrate 20 MEQ Effervescent TAB PO SCH ×2 (01:15→09:30)
[2023-04-30] MEDS ORDERED: *Potassium Replacement Protocol MC SCH ×2 (01:15→09:30)
[2023-04-30] MEDS ORDERED: Albuterol/Ipratropium 3 MG-0.5 MG/3 ML Neb Soln IH SCH ×2 (02:00)
[2023-04-30] MEDS ORDERED: Morphine 4 MG/ML VIAL IV ONE ×2 (03:45→04:30)
--- NOTE | 2023-04-30 04:28 | NUR ---
0325-Pt called stating they were having chest pain. VSS. Pt states its the same pain she has everytime she gets sick. Shy SCHAEFER notified and orders received.
[2023-04-30] MEDS ORDERED: Budesonide Neb Susp 0.5 MG/2 ML AMP IH SCH (07:00)
[2023-04-30] MEDS ORDERED: Formoterol Neb Soln 20 MCG/2 ML UD IH SCH (07:00)
--- NOTE | 2023-04-30 08:30 | NUR ---
Assessment complete. Pt a/o x4. O2 2L/NC. SOA with minimal exertion- unable to complete full sentences. WBC value verbally given to Dr. Ashlie Blevins. Fall risk precautions in place.
[2023-04-30 08:38] LABS: HEMOGLOBIN 11.7 g/dl (12.5-16.0); MEAN CELL VOLUME 94 fl (80.0-100.0); MEAN CORPUSCULAR HEMOGLOBIN 31 pg (27-31); MEAN CORPUSCULAR HGB CONC 33 g/dl (33.0-37.0); MEAN PLATELET VOLUME 10.8 fl (7.4-10.4); PLATELET COUNT 289 K/mm3 (130-400); RED BLOOD COUNT 3.79 M/mm3 (4.10-5.30)
[2023-04-30 08:49] LABS: HEMATOCRIT 35.6 % (37.0-47.0)
[2023-04-30 08:55] LABS: CALCIUM 9.6 mg/dL (8.4-10.2); CREATININE, serum 1.26 mg/dL (0.57-1.11); POTASSIUM 3.4 mmol/L (3.5-4.5)
[2023-04-30] MEDS ORDERED: Furosemide 40 MG TAB PO SCH (09:00)
[2023-04-30] MEDS ORDERED: dexAMETHasone 10 MG/ML VIAL IV SCH (09:00)
[2023-04-30] MEDS ORDERED: Cholecalciferol (Vit D3) 1000 Units TAB PO SCH (09:00)
[2023-04-30] MEDS ORDERED: Losartan 50 MG,hydroCHLOROthiazide 12.5 MG PO SCH (09:00)
[2023-04-30] MEDS ORDERED: Cetirizine 10 MG TAB PO SCH (09:00)
[2023-04-30] MEDS ORDERED: Fluticasone Nasal 50 MCG/Spray 16 GM BOTTLE NS SCH (09:00)
[2023-04-30] MEDS ORDERED: tiZANidine 4 MG TAB PO SCH (09:00)
[2023-04-30] MEDS ORDERED: [UNRECOGNIZED DRUG - REMARK] NS SCH (09:00)
[2023-04-30 10:12] LABS: ANISOCYTOSIS 1+; BAND 3 % (0-10); LYMPHOCYTE 6 % (20.0-51.0); METAMYELOCYTE 1 % (0-0); NEUTROPHILS 89 % (42.0-75.2); PLATELET ESTIMATE NORMAL (NORMAL)
[2023-04-30] MEDS ORDERED: Doxycycline Hyclate 100 MG in NS 150 ML IV SCH (11:30)
--- NOTE | 2023-04-30 14:28 | NUR ---
SW met with patient to complete intake. Patient current PCP is with [facility] Dr Strickland and she uses [facility] pharmacy, for immediate prescriptions patient indicated that she uses [facility] pharmacy in [place]. Patient lives on [address] would spouse Jonathon Blood [phone]. DPOA on file. Patient informed SW that she is independent with ADL's and current DME that she utilizes is oxygen at home as needed, she also has access to portable oxygen . 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 MARYSE offered to send email to reach out to patient to resolve. D/C Plan: (pending) further medical recommendations at this time
--- NOTE | 2023-04-30 15:18 | NUR ---
Respiratory Therapy at bedside obtaining an ABG then will place patient on bipap. Patient continues to be SOA with minimal exertion and unable to complete a full sentence. Rates pain 8/10, requesting Fioricet or Maxalt for headache. Bedside report given to BIB Fung. Antonieta will contact Dr. Blevins regarding patient's request.
[2023-04-30] MEDS ORDERED: SUMAtriptan 25 MG TAB PO PRN (15:30)
[2023-04-30 15:52] LABS: ARTERIAL BLD GAS TCO2 CT 24.4; ARTERIAL BLOOD GAS BASE EXCESS -0.5 (-2-2); ARTERIAL BLOOD GAS HCO3 23.3 meq/L (22-26); ARTERIAL BLOOD GAS PCO2 35.8 mmHg (35-45); ARTERIAL BLOOD GAS PO2 68.9 mmHg (80-100); ARTERIAL BLOOD GAS pH 7.43 (7.35-7.45)
--- NOTE | 2023-04-30 16:24 | NUR ---
Dr. Blevins notified of BP of .
[2023-05-01] VITALS (11 sets, daily range): BP systolic 103–120; BP diastolic 58–77; PULSE 77–94; TEMP 97.1–100.5
[2023-05-01 07:08] LABS: HEMOGLOBIN 11.2 g/dl (12.5-16.0); MEAN CELL VOLUME 96 fl (80.0-100.0); MEAN CORPUSCULAR HEMOGLOBIN 31 pg (27-31); MEAN CORPUSCULAR HGB CONC 33 g/dl (33.0-37.0); MEAN PLATELET VOLUME 10.8 fl (7.4-10.4); PLATELET COUNT 233 K/mm3 (130-400); REDCELL DISTRIBUTION WIDTH-CV 15.1 % (11.5-14.5)
[2023-05-01 07:30] LABS: CALCIUM 9.6 mg/dL (8.4-10.2); CREATININE, serum 1.08 mg/dL (0.57-1.11); POTASSIUM 3.4 mmol/L (3.5-4.5)
[2023-05-01 07:32] LABS: HEMATOCRIT 34.5 % (37.0-47.0)
[2023-05-01 07:48] LABS: BAND 10 % (0-10); LYMPHOCYTE 14 % (20.0-51.0); NEUTROPHILS 68 % (42.0-75.2); PLATELET ESTIMATE NORMAL (NORMAL)
--- NOTE | 2023-05-01 08:00 | NUR ---
PATINET AWAKE AND ALERT, SITTING UP IN BED. BIPAP ON . PATIENT NODDED TO DENY ANY NEEDS OR COMPLAINTS AT THIS TIME. CALL LIGHT WITHIN REACH.
[2023-05-01] MEDS ORDERED: Potassium Bicarbonate/Citrate 20 MEQ Effervescent TAB PO SCH (09:00)
--- NOTE | 2023-05-01 13:00 | NUR ---
PATIENT AWAKE AND ALERT, SITTING UP IN BED. SHE DENIES ANY NEEDS OR COMPLAINTS AT THIS TIME. CALL LIGHT WITHIN REACH.
--- NOTE | 2023-05-01 18:55 | NUR ---
PT RESTING IN BED WITH BIPAP ON. PT IS SR ON TELE. PT IS AXOX3. PT HAS CALL LIGHT WITHIN REACH AND INSTRUCTED TO CALL WITH ALL NEEDS.
[2023-05-02] VITALS (12 sets, daily range): BP systolic 112–139; BP diastolic 78–85; PULSE 3–92; TEMP 97.6–98.1
--- NOTE | 2023-05-02 09:00 | NUR ---
PT ALERT AND ORIENTED LAYING IN BED WITH BIPAP ON. IV TO RIGHT FA FLUSHING WELL. PAIN RATED 8/10 HAS NORCO SCHEDULED, MEDICATED PER EMAR. SHIFT ASSESSMENT COMPLETE, SEE DOCUMENTAION. AMBULATES INDEPENDENTLY IN ROOM AND TO BATHROOM. EVEN UNLABRORED RESPR. VSS. HAS BEEN EATING SMALL AMOUNTS OF FOOD B/C SHE SAYS SHE GETS FULL VERY EASILY. SHE IS MONITORED BY TELE NSR. LEGALLY BLIND IN LEFT EYE. POTASSIUM REPLACED PO. ON POTASSIUM PROTOCOL. DENIES FURTHER NEEDS AT THIS TIME. CALL LIGHT WITHIN REACH.
[2023-05-02 09:16] LABS: HEMOGLOBIN 11.2 g/dl (12.5-16.0); MEAN CELL VOLUME 96 fl (80.0-100.0); MEAN CORPUSCULAR HEMOGLOBIN 31 pg (27-31); MEAN CORPUSCULAR HGB CONC 33 g/dl (33.0-37.0); MEAN PLATELET VOLUME 11.2 fl (7.4-10.4); PLATELET COUNT 247 K/mm3 (130-400); RED BLOOD COUNT 3.61 M/mm3 (4.10-5.30); REDCELL DISTRIBUTION WIDTH-CV 15.1 % (11.5-14.5)
[2023-05-02 09:17] LABS: HEMATOCRIT 34.5 % (37.0-47.0)
[2023-05-02 09:26] LABS: CALCIUM 9.5 mg/dL (8.4-10.2); CREATININE, serum 0.98 mg/dL (0.57-1.11); POTASSIUM 3.6 mmol/L (3.5-4.5)
--- NOTE | 2023-05-02 10:43 | NUR ---
RECIEVED REPORT FROM FERCHO WHITE
[2023-05-02] MEDS ORDERED: Potassium Bicarbonate/Citrate 20 MEQ Effervescent TAB PO SCH (10:45)
[2023-05-02] MEDS ORDERED: *Potassium Replacement Protocol MC SCH (10:45)
[2023-05-02 10:54] LABS: ANISOCYTOSIS 1+; HYPOCHROMIA 1+; LYMPHOCYTE 15 % (20.0-51.0); NEUTROPHILS 82 % (42.0-75.2); PLATELET ESTIMATE NORMAL (NORMAL)
--- NOTE | 2023-05-02 21:45 | NUR ---
Patient resting in bed. Rates her pain a 6/10 at this time, requests pain meds to be given closer to 2300. Fresh water provided, denies any other needs. Assessment complete. IV in right forearm flushes easily with no complications. Patient on Bipap at this time. Call light and personal items in reach. Bed in low position.
[2023-05-03] VITALS (12 sets, daily range): BP systolic 108–139; BP diastolic 65–86; PULSE 63–84; TEMP 97.6–98.1
[2023-05-03] MEDS ORDERED: Morphine 4 MG/ML VIAL IV ONE (03:45)
--- NOTE | 2023-05-03 06:00 | NUR ---
Patient resting in bed. Rates her pain at 6/10 at this time, scheduled pain meds given. No changes over night. Call light and personal items in reach. Bed in low position.
[2023-05-03 10:07] LABS: HEMOGLOBIN 11.2 g/dl (12.5-16.0); MEAN CELL VOLUME 99 fl (80.0-100.0); MEAN CORPUSCULAR HEMOGLOBIN 31 pg (27-31); MEAN CORPUSCULAR HGB CONC 31 g/dl (33.0-37.0); MEAN PLATELET VOLUME 11.3 fl (7.4-10.4); PLATELET COUNT 262 K/mm3 (130-400); RED BLOOD COUNT 3.67 M/mm3 (4.10-5.30); REDCELL DISTRIBUTION WIDTH-CV 14.7 % (11.5-14.5)
[2023-05-03 10:08] LABS: HEMATOCRIT 36.3 % (37.0-47.0)
[2023-05-03 10:23] LABS: BAND 3 % (0-10); EOSINOPHIL 1 % (0-4); LYMPHOCYTE 31 % (20.0-51.0); METAMYELOCYTE 1 % (0-0); NEUTROPHILS 63 % (42.0-75.2); PLATELET ESTIMATE NORMAL (NORMAL)
[2023-05-03 10:28] LABS: CALCIUM 9.5 mg/dL (8.4-10.2); CREATININE, serum 0.99 mg/dL (0.57-1.11); POTASSIUM 3.5 mmol/L (3.5-4.5)
[2023-05-03] MEDS ORDERED: *Potassium Replacement Protocol MC SCH (11:45)
[2023-05-03] MEDS ORDERED: Potassium Bicarbonate/Citrate 20 MEQ Effervescent TAB PO SCH (11:45)
--- NOTE | 2023-05-03 19:11 | NUR ---
Pt medicated for pain with scheduled [place]. On RA. Able to complete full sentences without dyspnea. #22g IV started to LFA x1 attempt this morning and it has been without s/s complications. Replaced K+ per protocol. Denies needs at this time. Bedside report given to FERCHO Mota.
--- NOTE | 2023-05-03 21:15 | NUR ---
Patient resting in bed. Rates her pain at 6/10, scheduled pain meds given. Fresh water provided, denies any other needs. Assessment complete. IV in left forearm flushes easily with no complications. Call light and personal items in reach. Bed in low position.
[2023-05-04] VITALS (12 sets, daily range): BP systolic 105–144; BP diastolic 64–86; PULSE 64–78; TEMP 97.5–98.8
--- NOTE | 2023-05-04 06:10 | NUR ---
Patient resting in bed. Rates her pain at 7/10, scheduled pain meds given. Denies any needs at this time. No changes over night other than patient now has an acapella to help get some of her congestion out. Call light and personal items in reach. Bed in low position.
[2023-05-04 07:39] LABS: CALCIUM 9.3 mg/dL (8.4-10.2); CREATININE, serum 0.99 mg/dL (0.57-1.11); POTASSIUM 4.3 mmol/L (3.5-4.5)
--- NOTE | 2023-05-04 07:50 | NUR ---
Patient is alert and oriented, resting in bed. No complaints of pain. Zosyn running at 25 ml/hr. Observed patient using Vibratory PEP. Patient stated minimal efficacy. However, has been turning and coughing frequently.
[2023-05-04 08:21] LABS: HEMATOCRIT 39.5 % (37.0-47.0); HEMOGLOBIN 12.8 g/dl (12.5-16.0); MEAN CELL VOLUME 95 fl (80.0-100.0); MEAN CORPUSCULAR HEMOGLOBIN 31 pg (27-31); MEAN CORPUSCULAR HGB CONC 32 g/dl (33.0-37.0); MEAN PLATELET VOLUME 11.3 fl (7.4-10.4); PLATELET COUNT 246 K/mm3 (130-400); RED BLOOD COUNT 4.17 M/mm3 (4.10-5.30); REDCELL DISTRIBUTION WIDTH-CV 14.5 % (11.5-14.5)
[2023-05-04 08:34] LABS: LYMPHOCYTE 24 % (20.0-51.0); METAMYELOCYTE 4 % (0-0); NEUTROPHILS 69 % (42.0-75.2)
[2023-05-04 08:35] LABS: PLATELET ESTIMATE NORMAL (NORMAL)
--- NOTE | 2023-05-04 16:40 | NUR ---
Patient overall improved since this nurse cared for her on Monday. Pt on . Able to speak full sentences. Wears bipap while napping. Medicated with scheduled [place] for chronic pain. 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
--- NOTE | 2023-05-04 21:30 | NUR ---
Patient resting in bed. Rates her pain at 6/10 at this time. Denies any needs at this time. Assessment complete. IV in left forearm infiltrated, site removed. New site started in left AC. Call light and personal items in reach. Bed in low position.
[2023-05-05] VITALS (7 sets, daily range): BP systolic 107–132; BP diastolic 69–84; PULSE 75–80; TEMP 97.6–99.1
--- NOTE | 2023-05-05 06:00 | NUR ---
Patient resting in bed. Denies any needs at this time. No changes over night. Call light and personal items in reach. Bed in low position.
--- NOTE | 2023-05-05 07:00 | NUR ---
PT SITTING UP IN BED TALKING TO RESPIRATORY. PT IS ON RA AT THIS TIME. PT IS SR ON TELE. PT IS AXOX3. PT HAS CALL LIGHT WITHIN REACH AND INSTRUCTED TO CALL WTIH ALL NEEDS.
[2023-05-05 07:31] LABS: HEMOGLOBIN 11.5 g/dl (12.5-16.0); MEAN CELL VOLUME 96 fl (80.0-100.0); MEAN CORPUSCULAR HEMOGLOBIN 30 pg (27-31); MEAN CORPUSCULAR HGB CONC 32 g/dl (33.0-37.0); MEAN PLATELET VOLUME 11.1 fl (7.4-10.4); PLATELET COUNT 296 K/mm3 (130-400); RED BLOOD COUNT 3.82 M/mm3 (4.10-5.30); REDCELL DISTRIBUTION WIDTH-CV 14.6 % (11.5-14.5)
[2023-05-05 07:33] LABS: HEMATOCRIT 36.5 % (37.0-47.0)
[2023-05-05 07:50] LABS: CALCIUM 9.2 mg/dL (8.4-10.2); CREATININE, serum 0.98 mg/dL (0.57-1.11); POTASSIUM 3.8 mmol/L (3.5-4.5)
[2023-05-05] MEDS ORDERED: Potassium Bicarbonate/Citrate 20 MEQ Effervescent TAB PO ONE (08:00)
[2023-05-05] MEDS ORDERED: *Potassium Replacement Protocol MC SCH (08:00)
[2023-05-05 08:05] LABS: BAND 1 % (0-10); LYMPHOCYTE 25 % (20.0-51.0); METAMYELOCYTE 3 % (0-0); MYELOCYTE 1 % (0-0); NEUTROPHILS 62 % (42.0-75.2)
[2023-05-05 08:06] LABS: PLATELET ESTIMATE NORMAL (NORMAL)
--- NOTE | 2023-05-05 08:15 | NUR ---
Patient is alert and oriented. Resting in bed. Reports no complaints of pain or nausea. No acute changes at this time.
--- NOTE | 2023-05-05 08:23 | NUR ---
CHRISTIAN BRANTLEY WITH CARDIOLOGY CALLED AND UPDATED ON QTC 501. OKAY TO GIVE TIKOSYN.
--- NOTE | 2023-05-05 08:46 | NUR ---
Pt's IV infiltrted. Site swollen, but not red or painful. Angela CABAN notified. Will await physician rounding to see if meds will change to PO
[2023-05-05] MEDS ORDERED: REGLAN 5MG T5 MG/TAB PO (12:58)
--- NOTE | 2023-05-05 13:23 | NUR ---
1310-DISCHARGE INSTRUCTIONS DISCUSSED WITH PT. PT HAS QUESTIONS REGARDING REGLAN. DISCUSSED WITH SCOOBY CABAN. ORDERS PLACED TO PTS PHARMACY. PT UPDATED ON NEW SCRIPT. DISCUSSED FOLLOW UP APPOINTMENTS AND TO SCHEDULE CT. TELE REMOVED. PT GETTING DRESSED AND AWAITING FAMILY.
--- NOTE | 2023-05-05 13:27 | NUR ---
Patient received discharge instructions. Patient dressed herself independently. Observed primary nurse give discharge education.
--- NOTE | 2023-05-05 13:45 | NUR ---
PT WHEELED OUT FOR DISCHARGE. ACCOMPAINED BY FAMILY.
== END 2023-05-05 13:45 | disposition home or self-care (01) | DRG 871 ==
LOC: MEDICAL 21:42
PROVIDERS: Internal Medicine Pulmonary Disease; Nurse Practitioner Family; ADMIT Internal Medicine
PROC: 5A09557 Assistance with Respiratory Ventilation, Greater than 96 Consecutive Hours, Continuous Positive Airway Pressure (ICD-10-PCS; principal; 2023-04-30)
DX: A41.9 Sepsis, unspecified organism (principal); J69.0 Pneumonitis due to inhalation of food and vomit; J96.01 Acute respiratory failure with hypoxia; I13.0 Hypertensive heart and chronic kidney disease with heart failure and stage 1 through stage 4 chronic kidney disease, or unspecified chronic kidney disease; I50.32 Chronic diastolic (congestive) heart failure; E87.20 Acidosis, unspecified; N17.9 Acute kidney failure, unspecified; Z68.41 Body mass index [BMI] 40.0-44.9, adult; Z66 Do not resuscitate; R65.20 Severe sepsis without septic shock; I48.0 Paroxysmal atrial fibrillation; E66.01 Morbid (severe) obesity due to excess calories; Z20.822 Contact with and (suspected) exposure to COVID-19; K44.9 Diaphragmatic hernia without obstruction or gangrene; K21.9 Gastro-esophageal reflux disease without esophagitis; G89.29 Other chronic pain; K31.84 Gastroparesis; K76.0 Fatty (change of) liver, not elsewhere classified; K25.9 Gastric ulcer, unspecified as acute or chronic, without hemorrhage or perforation; F17.210 Nicotine dependence, cigarettes, uncomplicated; E87.6 Hypokalemia; G43.909 Migraine, unspecified, not intractable, without status migrainosus; E27.8 Other specified disorders of adrenal gland; G93.2 Benign intracranial hypertension; N18.9 Chronic kidney disease, unspecified; Z98.2 Presence of cerebrospinal fluid drainage device; Z79.82 Long term (current) use of aspirin; Z79.899 Other long term (current) drug therapy; Z87.442 Personal history of urinary calculi; Z99.81 Dependence on supplemental oxygen
CPT/HCPCS: J1100; J1650; J2270; J2543